=== PATIENT | female | born 1975 ===

== ENCOUNTER 2017-09-14 08:30 | Emergency (ER) | payer BC, OTHER ==
[2017-09-14 08:42] VITALS: BP 138/93; PULSE 99; RESP 16; TEMP 97; O2SAT 99
--- NOTE | 2017-09-14 09:01 | ED PDOC ---
HPI: CCC, URI, Sore Throat Time Seen by Provider: 09/14/17 08:47 Chief Complaint (Nursing): Cough, Cold, Congestion Chief Complaint (Provider): cough History Per: Patient History/Exam Limitations: no limitations Onset/Duration Of Symptoms: Days (4) Current Symptoms Are (Timing): Still Present Additional Complaint(s): Cough, nasal congestion, green phlegm, body aches, chest pain on coughing. Dyspnea from coughing. No nausea, vomit, diarrhea, weakness, abd pain, headaches, dizziness. No fever. Started amoxicillin on her own at where she was. Past Medical History Reviewed: Nursing Documentation, Vital Signs Vital Signs: Last Vital Signs Temp 97.0 F L 09/14/17 08:39 Pulse 99 H 09/14/17 08:39 Resp 16 09/14/17 08:39 BP 138/93 H 09/14/17 08:39 Pulse Ox 99 09/14/17 09:03 - Medical History PMH: HTN - Surgical History Surgical History: No Surg Hx - Family History Family History: States: Unknown Family Hx - Living Arrangements Living Arrangements: With Family - Social History Current smoker - smoking cessation education provided: No Alcohol: None Drugs: Denies - Home Medications Home Medications: Ambulatory Orders Medication Instructions Recorded Amoxicillin [Amoxil 500 mg Cap] 500 mg PO Q4H 09/14/17 Benzonatate [Tessalon Perles] 100 mg PO BID PRN 5 Days sgl 09/14/17 Ibuprofen [Motrin] 600 mg PO TID 7 Days tab 09/14/17 Labetalol [Trandate] 100 mg PO DAILY 09/14/17 Oseltamivir Phosphate [Tamiflu] 75 mg PO BID 5 Days capsule 09/14/17 - Allergies Allergies/Adverse Reactions: Allergies Allergy/AdvReac Type Severity Reaction Status Date / Time No Known Allergies Allergy Verified 09/14/17 08:39 Review of Systems Constitutional: Negative for: Fever, Weakness ENT: Positive for: Nose Pain, Nose Discharge, Nose Congestion, Throat Pain Cardiovascular: Negative for: Chest Pain, Edema Respiratory: Positive for: Cough, Shortness of Breath. Negative for: Sputum Gastrointestinal: Negative for: Nausea, Vomiting, Abdominal Pain, Diarrhea Skin: Negative for: Rash Neurological: Negative for: Weakness Physical Exam - Reviewed Nursing Documentation Reviewed: Yes - Physical Exam Appears: Positive for: Non-toxic, No Acute Distress Head Exam: Positive for: ATRAUMATIC, NORMAL INSPECTION, NORMOCEPHALIC Skin: Positive for: Normal Color, Warm, DRY Eye Exam: Positive for: EOMI, Normal appearance, PERRL ENT: Positive for: Sinus Pain/Drainage, Nasal Congestion. Negative for: Tonsillar Exudate Neck: Positive for: Normal, Painless ROM, Supple Cardiovascular/Chest: Positive for: Regular Rate, Rhythm Respiratory: Positive for: Normal Breath Sounds. Negative for: Accessory Muscle Use, Wheezing Back: Positive for: Normal Inspection. Negative for: L CVA Tenderness, R CVA Tenderness Extremity: Positive for: Normal ROM. Negative for: Tenderness, Pedal Edema Neurologic/Psych: Positive for: Alert, Oriented - ECG O2 Sat by Pulse Oximetry: 99 Pulse Ox Interpretation: Normal - Progress ED Course And Treament: Flu pos. 1023: Stable. AAOx3. Tolerates po. Fu with pcp. Pain controlled. Disposition - Clinical Impression Clinical Impression: Influenza - Patient ED Disposition Is Patient to be Admitted: No Counseled Patient/Family Regarding: Studies Performed, Diagnosis, Need For Followup, Rx Given - Disposition [facility]errals: [facility] - 09/15/17 Disposition: Routine/Home Disposition Time: 10:24 Condition: STABLE Additional Instructions: Return if not better in 3 days. Prescriptions: Benzonatate [Tessalon Perles] 100 mg PO BID PRN 5 Days sgl PRN Reason: Cough Ibuprofen [Motrin] 600 mg PO TID 7 Days tab Oseltamivir Phosphate [Tamiflu] 75 mg PO BID 5 Days capsule Instructions: Influenza (ED) Forms: Storie (Nam[place]ian), [facility] ED School/Work Excuse Print Language: BHUTANESE
== END 2017-09-14 10:53 | disposition home or self-care (01) ==
LOC: H.ER 08:30
DX: J11.1 Influenza due to unidentified influenza virus with other respiratory manifestations (principal); I10 Essential (primary) hypertension